=== PATIENT | male | born 1990 | race Caucasian/White ===

== ENCOUNTER 2017-11-08 20:42 | Emergency (ER) | payer OTHER ==
[2017-11-09] MEDS: KETOROLAC 60 MG INJ IM (01:52)
== END 2017-11-09 02:07 | disposition home or self-care (01) ==
LOC: FTE 20:42
DX: S06.0X0A Concussion without loss of consciousness, initial encounter (principal); S10.93XA Contusion of unspecified part of neck, initial encounter; S40.012A Contusion of left shoulder, initial encounter; R51 Headache; R07.9 Chest pain, unspecified; V49.40XA Driver injured in collision with unspecified motor vehicles in traffic accident, initial encounter
CPT/HCPCS: 70450; 71046; 72125; 73030; 96372; 99285-25